=== PATIENT | male | born 1960 | race Caucasian/White ===

== ENCOUNTER 2018-08-13 14:27 | Inpatient (IN) | payer OTHER ==
[2018-08-13 14:54] VITALS: BMI 28.7
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
[2018-08-13] MEDS ORDERED: guaiFENesin/D-METHORPHAN HB 10 ML UNIT-DOSE CUPS PO PRN (15:18)
[2018-08-13] MEDS ORDERED: ACETAMINOPHEN 325 MG TABLET (FP) PO PRN (15:18)
[2018-08-13] MEDS ORDERED: hydrOXYzine PAMOATE 50 MG CAPSULE (FP) PO PRN (15:18)
[2018-08-13] MEDS ORDERED: P-EPHED 60MG/TRIPROLIDI 2.5MG TABLET PO PRN (15:18)
[2018-08-13] MEDS ORDERED: MAG HYDROX/AL HYDROX/SIMETH 30 ML UNIT-DOSE CUP PO PRN (15:18)
[2018-08-13] MEDS ORDERED: MAGNESIUM HYDROX 2400MG/30ML ORAL SUSPENSION 30 ML CUP PO PRN (15:18)
[2018-08-13] MEDS ORDERED: chlordiazePOXIDE HCL 25 MG CAPSULE PO ONE (15:18)
[2018-08-13] MEDS ORDERED: MENTHOL/PHENOL 1 EACH UD MM PRN (15:18)
[2018-08-13] MEDS ORDERED: LOPERAMIDE HCL 2 MG CAPSULE PO PRN (15:18)
[2018-08-13] MEDS ORDERED: MAGNESIUM CITRATE 300 ML BOTTLE PO PRN (15:18)
[2018-08-13] MEDS ORDERED: chlordiazePOXIDE HCL 25 MG CAPSULE PO PRN (15:18)
--- NOTE | 2018-08-13 18:30 | PN ---
[facility] Progress Note Note: EKG review- Patient has abnormal EKG showing left ventricular hypertrophy with QRS widening. Patient was admitted this afternoon with h/o chronic hypertension , on medication. On admission, he denied chest pain, palpitation, SOB or referred cardiac pain. Monitoring ongoing.
[2018-08-13] MEDS: chlordiazePOXIDE HCL 25 MG CAPSULE PO SCH ×2 (18:35→22:47)
[2018-08-13] MEDS: MELATONIN 5 MG TABLETS PO PRN (22:47)
[2018-08-13] MEDS: THIAMINE HCL 100 MG TABLET (FP) PO SCH (22:47)
[2018-08-14] MEDS: chlordiazePOXIDE HCL 25 MG CAPSULE PO SCH ×4 (04:00→22:11)
[2018-08-14] MEDS: IBUPROFEN 400 MG TABLET (FP) PO PRN ×2 (04:01→19:36)
[2018-08-14] MEDS: HYDROCHLOROTHIAZIDE 12.5 MG CAPSULE (FP) PO SCH (10:05)
[2018-08-14] MEDS: PRENATAL VITAMINS W/ FOLIC ACID TABLET (FP) PO SCH (10:05)
[2018-08-14] MEDS: ENALAPRIL MALEATE 10 MG TABLET (FP) PO SCH (10:06)
--- NOTE | 2018-08-14 10:46 | PN ---
S CIWA - CIWA Score Nausea/Vomitin-Mild Nausea/No Vomiting Muscle Tremors: 3 Anxiety: 1-Mildly Anxious Agitation: 2 Paroxysmal Sweats: 1-Minimal Palms Moist Orientation: 0-Oriented Tacttile Disturbances: 0-None Auditory Disturbances: 0-None Visual Disturbances: 0-None Headache: 2-Mild CIWA-Ar Total Score: 10 B[facility] Progress Note (SOAP) Subjective: tremor sweating patient reported that his primary care provider once told him that he has slight anemia denies bleeding episodes skin warm pink brisk capillary refilled encourage colonoscopy as per GI scheduled Objective: 08/14/18 10:45 Vital Signs Temperature 97 F L 08/14/18 09:15 Pulse Rate 87 08/14/18 09:15 Respiratory Rate 18 08/14/18 09:15 Blood Pressure 113/78 08/14/18 09:15 O2 Sat by Pulse Oximetry (%) lab pending Assessment: 08/14/18 10:45 alcohol withdrawal sx Plan: continue detox
[2018-08-14 10:49] LABS: ALK PHOS 86 U/L (45-117); ANION GAP 5 MMOL/L (8-16); BILIRUBIN,TOTAL 0.5 mg/dL (0.2-1); BLOOD UREA NITROGEN 18 mg/dL (7-18); CALCIUM 7.9 mg/dL (8.5-10.1); CHLORIDE 105 mmol/L (98-107); CO2 28 mmol/L (21-32); CREATININE 0.9 mg/dL (0.55-1.3); GLUCOSE,RANDOM 110 mg/dL (74-106); POTASSIUM 3.3 mmol/L (3.5-5.1); SGOT/AST 19 U/L (15-37); SGPT/ALT 22 U/L (13-61); SODIUM 138 mmol/L (136-145); TOT PROT 6.2 g/dl (6.4-8.2)
[2018-08-14 10:57] LABS: HEMATOCRIT 33.9 % (35.4-49); HEMOGLOBIN 11.7 GM/dL (11.7-16.9); MCH 33.8 pg (25.7-33.7); MCHC 34.5 g/dl (32.0-35.9); MEAN CELL VOLUME 97.9 fl (80-96); MEAN PLT VOLUME 8.5 fl (7.5-11.1); PLATELET COUNT 136 K/MM3 (134-434); RBC 3.47 M/mm3 (4.00-5.60); RDW 15.9 % (11.9-15.9); WHITE BLOOD COUNT 5.2 K/mm3 (4.0-10.0)
[2018-08-14] MEDS: POTASSIUM CHLORIDE ORAL LIQUID 20 MEQ/15 ML PO SCH ×2 (17:40→22:44)
[2018-08-14] MEDS: CALCIUM 250MG/VIT-D 125 UNITS 1 COMBO TABLET PO SCH ×2 (17:52→22:11)
[2018-08-14] MEDS: THIAMINE HCL 100 MG TABLET (FP) PO SCH (22:11)
[2018-08-14] MEDS: MELATONIN 5 MG TABLETS PO PRN (22:11)
--- NOTE | 2018-08-14 22:14 | EKG ---
Test Reason : Blood Pressure : / mmHG Vent. Rate : 089 BPM Atrial Rate : 089 BPM P-R Int : 208 ms QRS Dur : 116 ms QT Int : 374 ms P-R-T Axes : 055 -37 015 degrees QTc Int : 455 ms NORMAL SINUS RHYTHM LEFT AXIS DEVIATION LEFT VENTRICULAR HYPERTROPHY WITH QRS WIDENING ABNORMAL ECG NO PREVIOUS ECGS AVAILABLE Confirmed by MARY VILLANUEVA MD ([id number]) on 08/14/2018 10:14:23 PM Referred By: SAMPSON CHEEMA Confirmed By:MARY VILLANUEVA MD
[2018-08-15] MEDS: chlordiazePOXIDE HCL 25 MG CAPSULE PO SCH ×2 (05:07→10:10)
--- NOTE | 2018-08-15 10:06 | PN ---
[facility] CIWA - CIWA Score Nausea/Vomitin-No Nausea/No Vomiting Muscle Tremors: 2 Anxiety: 3 Agitation: 2 Paroxysmal Sweats: 1-Minimal Palms Moist Orientation: 0-Oriented Tacttile Disturbances: 0-None Auditory Disturbances: 0-None Visual Disturbances: 0-None Headache: 0-None Present CIWA-Ar Total Score: 8 S Progress Note (SOAP) Subjective: history of anemia anxious about low iron and needed to take iron supplement emotional assurance that mild below normal rbc within normal hgb anxiety restlessness overly worry Objective: 08/15/18 10:04 Vital Signs Temperature 96.5 F L 08/15/18 09:39 Pulse Rate 81 08/15/18 09:39 Respiratory Rate 18 08/15/18 09:39 Blood Pressure 152/90 08/15/18 09:39 O2 Sat by Pulse Oximetry (%) Laboratory Last Values WBC 5.2 K/mm3 (4.0-10.0) 08/14/18 07:50 RBC 3.47 M/mm3 (4.00-5.60) L 08/14/18 07:50 Hgb 11.7 GM/dL (11.7-16.9) 08/14/18 07:50 Hct 33.9 % (35.4-49) L 08/14/18 07:50 MCV 97.9 fl (80-96) H 08/14/18 07:50 MCH 33.8 pg (25.7-33.7) H 08/14/18 07:50 MCHC 34.5 g/dl (32.0-35.9) 08/14/18 07:50 RDW 15.9 % (11.9-15.9) 08/14/18 07:50 Plt Count 136 K/MM3 (134-434) 08/14/18 07:50 MPV 8.5 fl (7.5-11.1) 08/14/18 07:50 Sodium 138 mmol/L (136-145) 08/14/18 07:50 Potassium 3.8 mmol/L (3.5-5.1) 08/15/18 07:40 Chloride 105 mmol/L (98-107) 08/14/18 07:50 Carbon Dioxide 28 mmol/L (21-32) 08/14/18 07:50 Anion Gap 5 MMOL/L (8-16) L 08/14/18 07:50 BUN 18 mg/dL (7-18) 08/14/18 07:50 Creatinine 0.9 mg/dL (0.55-1.3) 08/14/18 07:50 Creat Clearance w eGFR > 60 (>60) 08/14/18 07:50 Random Glucose 110 mg/dL (74-106) H 08/14/18 07:50 Calcium 7.9 mg/dL (8.5-10.1) L 08/14/18 07:50 Total Bilirubin 0.5 mg/dL (0.2-1) 08/14/18 07:50 AST 19 U/L (15-37) 08/14/18 07:50 ALT 22 U/L (13-61) 08/14/18 07:50 Alkaline Phosphatase 86 U/L (45-117) 08/14/18 07:50 Total Protein 6.2 g/dl (6.4-8.2) L 08/14/18 07:50 Albumin 3.0 g/dl (3.4-5.0) L 08/14/18 07:50 RPR Titer Nonreactive (NONREACTIVE) 08/14/18 07:50 lab noted low ca++ continue calcium discontinue K+ 08/15/18 10:05 Assessment: 08/15/18 10:06 withdrawal sx low Ca++ Plan: continue detox continue Ca++
[2018-08-15] MEDS: CALCIUM 250MG/VIT-D 125 UNITS 1 COMBO TABLET PO SCH ×2 (10:08→22:08)
[2018-08-15] MEDS: HYDROCHLOROTHIAZIDE 12.5 MG CAPSULE (FP) PO SCH (10:09)
[2018-08-15] MEDS: ENALAPRIL MALEATE 10 MG TABLET (FP) PO SCH (10:09)
[2018-08-15] MEDS: PRENATAL VITAMINS W/ FOLIC ACID TABLET (FP) PO SCH (10:09)
[2018-08-15] MEDS: chlordiazePOXIDE 5 MG CAPSULE PO SCH ×2 (17:54→22:08)
[2018-08-15] MEDS: MELATONIN 5 MG TABLETS PO PRN (22:08)
[2018-08-15] MEDS: THIAMINE HCL 100 MG TABLET (FP) PO SCH (22:08)
[2018-08-16] MEDS: chlordiazePOXIDE 5 MG CAPSULE PO SCH ×2 (05:14→10:17)
[2018-08-16] MEDS: HYDROCHLOROTHIAZIDE 12.5 MG CAPSULE (FP) PO SCH (10:17)
[2018-08-16] MEDS: CALCIUM 250MG/VIT-D 125 UNITS 1 COMBO TABLET PO SCH ×2 (10:17→22:08)
[2018-08-16] MEDS: ENALAPRIL MALEATE 10 MG TABLET (FP) PO SCH (10:17)
[2018-08-16] MEDS: PRENATAL VITAMINS W/ FOLIC ACID TABLET (FP) PO SCH (10:17)
--- NOTE | 2018-08-16 10:40 | PN ---
S CIWA - CIWA Score Nausea/Vomitin-No Nausea/No Vomiting Muscle Tremors: 2 Anxiety: 2 Agitation: 1-Slight > Activity Paroxysmal Sweats: No Perspiration Orientation: 0-Oriented Tacttile Disturbances: 0-None Auditory Disturbances: 0-None Visual Disturbances: 0-None Headache: 0-None Present CIWA-Ar Total Score: 5 B[facility] Progress Note (SOAP) Subjective: feeling better less tremor requests lower the librium dosage that he is able to sleep through the night more energy and mild sweating Objective: 08/16/18 10:50 Vital Signs Temperature 96.4 F L 08/16/18 09:45 Pulse Rate 93 H 08/16/18 09:45 Respiratory Rate 16 08/16/18 09:45 Blood Pressure 147/90 08/16/18 09:45 O2 Sat by Pulse Oximetry (%) Laboratory Last Values WBC 5.2 K/mm3 (4.0-10.0) 08/14/18 07:50 RBC 3.47 M/mm3 (4.00-5.60) L 08/14/18 07:50 Hgb 11.7 GM/dL (11.7-16.9) 08/14/18 07:50 Hct 33.9 % (35.4-49) L 08/14/18 07:50 MCV 97.9 fl (80-96) H 08/14/18 07:50 MCH 33.8 pg (25.7-33.7) H 08/14/18 07:50 MCHC 34.5 g/dl (32.0-35.9) 08/14/18 07:50 RDW 15.9 % (11.9-15.9) 08/14/18 07:50 Plt Count 136 K/MM3 (134-434) 08/14/18 07:50 MPV 8.5 fl (7.5-11.1) 08/14/18 07:50 Sodium 138 mmol/L (136-145) 08/14/18 07:50 Potassium 3.8 mmol/L (3.5-5.1) 08/15/18 07:40 Chloride 105 mmol/L (98-107) 08/14/18 07:50 Carbon Dioxide 28 mmol/L (21-32) 08/14/18 07:50 Anion Gap 5 MMOL/L (8-16) L 08/14/18 07:50 BUN 18 mg/dL (7-18) 08/14/18 07:50 Creatinine 0.9 mg/dL (0.55-1.3) 08/14/18 07:50 Creat Clearance w eGFR > 60 (>60) 08/14/18 07:50 Random Glucose 110 mg/dL (74-106) H 08/14/18 07:50 Calcium 7.9 mg/dL (8.5-10.1) L 08/14/18 07:50 Total Bilirubin 0.5 mg/dL (0.2-1) 08/14/18 07:50 AST 19 U/L (15-37) 08/14/18 07:50 ALT 22 U/L (13-61) 08/14/18 07:50 Alkaline Phosphatase 86 U/L (45-117) 08/14/18 07:50 Total Protein 6.2 g/dl (6.4-8.2) L 08/14/18 07:50 Albumin 3.0 g/dl (3.4-5.0) L 08/14/18 07:50 RPR Titer Nonreactive (NONREACTIVE) 08/14/18 07:50 lab noted Assessment: 08/16/18 10:50 mild withdrawal sx Plan: continue detox
[2018-08-16] MEDS ORDERED: chlordiazePOXIDE HCL 10 MG CAPSULE PO SCH (17:00)
[2018-08-16] MEDS: chlordiazePOXIDE HCL 10 MG CAPSULE PO SCH ×2 (17:31→22:08)
[2018-08-16] MEDS: THIAMINE HCL 100 MG TABLET (FP) PO SCH (22:08)
[2018-08-16] MEDS: MELATONIN 5 MG TABLETS PO PRN (22:08)
[2018-08-17 06:46] VITALS: BP 126/70; PULSE 54; TEMP 96.3
--- NOTE | 2018-08-17 09:42 | DS ---
[facility] Detox Discharge Summary Admission Date: 08/13/18 Discharge Date: 08/17/18 - History Present History: Alcohol Dependence Additional Comments: 58 years old male admitted on 08/13/18 for alcohol withdrawal stabilization completed alcohol detox regimen aftercare [facility] rehab facility Pertinent Past History: keep medication list in wallet bring-in bottles of medication and medication list to aftercare appointment important of medication adherence update medication list when changes of medication - Physical Exam Results Vital Signs: Vital Signs Temperature 96.3 F L 08/17/18 06:45 Pulse Rate 54 L 08/17/18 06:45 Respiratory Rate 16 08/17/18 06:45 Blood Pressure 126/70 08/17/18 06:45 O2 Sat by Pulse Oximetry (%) Pertinent Admission Physical Exam Findings: alcohol withdrawal sx Laboratory Last Values WBC 5.2 K/mm3 (4.0-10.0) 08/14/18 07:50 RBC 3.47 M/mm3 (4.00-5.60) L 08/14/18 07:50 Hgb 11.7 GM/dL (11.7-16.9) 08/14/18 07:50 Hct 33.9 % (35.4-49) L 08/14/18 07:50 MCV 97.9 fl (80-96) H 08/14/18 07:50 MCH 33.8 pg (25.7-33.7) H 08/14/18 07:50 MCHC 34.5 g/dl (32.0-35.9) 08/14/18 07:50 RDW 15.9 % (11.9-15.9) 08/14/18 07:50 Plt Count 136 K/MM3 (134-434) 08/14/18 07:50 MPV 8.5 fl (7.5-11.1) 08/14/18 07:50 Sodium 138 mmol/L (136-145) 08/14/18 07:50 Potassium 3.8 mmol/L (3.5-5.1) 08/15/18 07:40 Chloride 105 mmol/L (98-107) 08/14/18 07:50 Carbon Dioxide 28 mmol/L (21-32) 08/14/18 07:50 Anion Gap 5 MMOL/L (8-16) L 08/14/18 07:50 BUN 18 mg/dL (7-18) 08/14/18 07:50 Creatinine 0.9 mg/dL (0.55-1.3) 08/14/18 07:50 Creat Clearance w eGFR > 60 (>60) 08/14/18 07:50 Random Glucose 110 mg/dL (74-106) H 08/14/18 07:50 Calcium 7.9 mg/dL (8.5-10.1) L 08/14/18 07:50 Total Bilirubin 0.5 mg/dL (0.2-1) 08/14/18 07:50 AST 19 U/L (15-37) 08/14/18 07:50 ALT 22 U/L (13-61) 08/14/18 07:50 Alkaline Phosphatase 86 U/L (45-117) 08/14/18 07:50 Total Protein 6.2 g/dl (6.4-8.2) L 08/14/18 07:50 Albumin 3.0 g/dl (3.4-5.0) L 08/14/18 07:50 RPR Titer Nonreactive (NONREACTIVE) 08/14/18 07:50 lab noted - Treatment Hospital Course: Detox Protocol Followed, Detoxed Safely, Responded well, Discharged Condition Good, Rehab Referral Accepted Patient has Accepted a Rehab Referral to: [facility] able - Medication Discharge Medications: Ambulatory Orders Hydrochlorothiazide 12.5 mg PO DAILY 08/13/18 Amlodipine Besylate [Norvasc -] 10 mg PO DAILY #14 tablet 08/16/18 Enalapril Maleate [Vasotec -] 10 mg PO DAILY #14 tablet 08/16/18 Hydrochlorothiazide [Hctz -] 12.5 mg PO DAILY #14 cap 08/16/18 - Diagnosis (1) HTN (hypertension) Status: Chronic Qualifiers: Hypertension type: essential hypertension Qualified Code(s): I10 - Essential (primary) hypertension (2) Uncomplicated alcohol withdrawal Status: Acute (3) Asthma Status: Chronic Qualifiers: Asthma severity: mild Asthma persistence: intermittent Asthma complication type: unspecified Qualified Code(s): J45.20 - Mild intermittent asthma, uncomplicated - AMA Did Patient Leave Against Medical Advice: No
== END 2018-08-17 08:56 | disposition home or self-care (01) | DRG 775 ==
LOC: YASAS 14:27 → Y3N 17:02
PROVIDERS: ADMIT Surgery; ATTEND Surgery
PROC: HZ2ZZZZ Detoxification Services for Substance Abuse Treatment (ICD-10-PCS; principal; 2018-08-13)
DX: F10.230 Alcohol dependence with withdrawal, uncomplicated (principal); I10 Essential (primary) hypertension; J45.20 Mild intermittent asthma, uncomplicated; E78.00 Pure hypercholesterolemia, unspecified; E83.51 Hypocalcemia; E87.6 Hypokalemia; R94.31 Abnormal electrocardiogram [ECG] [EKG]; Z86.2 Personal history of diseases of the blood and blood-forming organs and certain disorders involving the immune mechanism; Z86.73 Personal history of transient ischemic attack (TIA), and cerebral infarction without residual deficits; Z86.74 Personal history of sudden cardiac arrest
CPT/HCPCS: 36415; 80053; 84132; 85027; 86593; 93005; 93010

== ENCOUNTER 2021-12-01 23:11 | Inpatient (IN) | payer OTHER ==
[2021-12-01 23:57] VITALS: BMI 24.3
[2021-12-02] MEDS ORDERED: BENZOCAINE/MENTHOL (CHLORASEPTIC ) LOZENGE MM PRN (00:36)
[2021-12-02] MEDS ORDERED: IBUPROFEN 400 MG TABLET (FP) PO PRN (00:36)
[2021-12-02] MEDS ORDERED: MAG HYDROX/AL HYDROX/SIMETH 30 ML UNIT-DOSE CUP PO PRN (00:36)
[2021-12-02] MEDS ORDERED: MAGNESIUM HYDROX 2400MG/30ML ORAL SUSPENSION 30 ML CUP PO PRN (00:36)
[2021-12-02] MEDS ORDERED: DICYCLOMINE HCL 10 MG CAPSULE PO PRN (00:36)
[2021-12-02] MEDS ORDERED: MAGNESIUM CITRATE 300 ML BOTTLE PO PRN (00:36)
[2021-12-02] MEDS ORDERED: IBUPROFEN 600 MG TABLET (FP) PO PRN (00:36)
[2021-12-02] MEDS ORDERED: BISMUTH SUBSALICYLATE 524 MG/30 ML PO PRN (00:36)
[2021-12-02] MEDS ORDERED: ACETAMINOPHEN 325 MG TABLET (FP) PO PRN ×2 (00:36)
[2021-12-02] MEDS ORDERED: LOPERAMIDE HCL 2 MG CAPSULE PO PRN (00:36)
[2021-12-02] MEDS ORDERED: ONDANSETRON *ODT* 4 MG TABLET SL PRN (00:36)
[2021-12-02] MEDS ORDERED: chlordiazePOXIDE HCL 25 MG CAPSULE PO PRN (00:38)
[2021-12-02] MEDS ORDERED: cloNIDine HCL 0.1 MG TABLET PO ONE ×2 (01:48→06:48)
[2021-12-02] MEDS: METHOCARBAMOL 500 MG TABLET PO PRN ×2 (01:48→10:26)
[2021-12-02] MEDS: chlordiazePOXIDE HCL 25 MG CAPSULE PO SCH ×4 (05:53→22:15)
[2021-12-02] MEDS: PRENATAL VITAMINS W/ FOLIC ACID TABLET (FP) PO SCH (10:26)
[2021-12-02] MEDS: ENALAPRIL MALEATE 10 MG TABLET PO SCH (10:26)
[2021-12-02] MEDS: HYDROCHLOROTHIAZIDE 12.5 MG CAPSULE (FP) PO SCH (10:26)
[2021-12-02] MEDS: amLODIPine BESYLATE 10 MG TABLET (FP) PO SCH (10:26)
[2021-12-02 15:26] LABS: HEMATOCRIT 40.6 % (35.4-49); HEMOGLOBIN 13.4 GM/dL (11.7-16.9); MCH 32.3 pg (25.7-33.7); MCHC 33.1 g/dl (32.0-35.9); MEAN CELL VOLUME 97.6 fl (80-96); MEAN PLT VOLUME 8.7 fl (7.5-11.1); RBC 4.16 M/mm3 (4.00-5.60); RDW 19.7 % (11.9-15.9); WHITE BLOOD COUNT 3.9 K/mm3 (4.0-10.0)
[2021-12-02 15:29] LABS: CALCIUM 8.5 mg/dL (8.5-10.1)
[2021-12-02 15:30] LABS: ALBUMIN 3.3 g/dl (3.4-5.0); BLOOD UREA NITROGEN 8.8 mg/dL (7-18)
[2021-12-02 15:34] LABS: TOT PROT 7.2 g/dl (6.4-8.2)
[2021-12-02 16:23] LABS: PLATELET COUNT 61 10^3/uL (134-434)
[2021-12-02] MEDS: MELATONIN 5 MG TABLETS PO SCH (22:12)
[2021-12-02] MEDS: THIAMINE HCL 100 MG TABLET (FP) PO SCH (22:12)
[2021-12-03] MEDS: chlordiazePOXIDE HCL 25 MG CAPSULE PO SCH ×4 (05:39→22:17)
[2021-12-03] MEDS: amLODIPine BESYLATE 10 MG TABLET (FP) PO SCH (10:27)
[2021-12-03] MEDS: PRENATAL VITAMINS W/ FOLIC ACID TABLET (FP) PO SCH (10:27)
[2021-12-03] MEDS: HYDROCHLOROTHIAZIDE 12.5 MG CAPSULE (FP) PO SCH (10:27)
[2021-12-03] MEDS: ENALAPRIL MALEATE 10 MG TABLET PO SCH (10:27)
[2021-12-03] MEDS ORDERED: cloNIDine HCL 0.1 MG TABLET PO ONE (13:15)
[2021-12-03] MEDS: THIAMINE HCL 100 MG TABLET (FP) PO SCH (22:16)
[2021-12-03] MEDS: MELATONIN 5 MG TABLETS PO SCH (22:16)
[2021-12-04] MEDS ORDERED: chlordiazePOXIDE HCL 10 MG CAPSULE PO PRN
[2021-12-04] MEDS: chlordiazePOXIDE HCL 10 MG CAPSULE PO SCH ×4 (06:40→22:17)
[2021-12-04] MEDS: ENALAPRIL MALEATE 10 MG TABLET PO SCH (10:12)
[2021-12-04] MEDS: PRENATAL VITAMINS W/ FOLIC ACID TABLET (FP) PO SCH (10:12)
[2021-12-04] MEDS: HYDROCHLOROTHIAZIDE 12.5 MG CAPSULE (FP) PO SCH (10:12)
[2021-12-04] MEDS: amLODIPine BESYLATE 10 MG TABLET (FP) PO SCH (10:12)
[2021-12-04] MEDS: MELATONIN 5 MG TABLETS PO SCH (22:16)
[2021-12-04] MEDS: THIAMINE HCL 100 MG TABLET (FP) PO SCH (22:17)
[2021-12-05] MEDS: chlordiazePOXIDE HCL 10 MG CAPSULE PO SCH ×2 (05:51→17:53)
[2021-12-05] MEDS: amLODIPine BESYLATE 10 MG TABLET (FP) PO SCH (10:18)
[2021-12-05] MEDS: PRENATAL VITAMINS W/ FOLIC ACID TABLET (FP) PO SCH (10:18)
[2021-12-05] MEDS: ENALAPRIL MALEATE 10 MG TABLET PO SCH (10:18)
[2021-12-05] MEDS: HYDROCHLOROTHIAZIDE 12.5 MG CAPSULE (FP) PO SCH (10:18)
[2021-12-05] MEDS: METHOCARBAMOL 500 MG TABLET PO PRN (17:55)
[2021-12-05] MEDS: MELATONIN 5 MG TABLETS PO SCH (22:14)
[2021-12-05] MEDS: THIAMINE HCL 100 MG TABLET (FP) PO SCH (22:14)
[2021-12-06] MEDS ORDERED: chlordiazePOXIDE HCL 10 MG CAPSULE PO ONE (05:00)
[2021-12-06] MEDS: ENALAPRIL MALEATE 10 MG TABLET PO SCH (09:38)
[2021-12-06] MEDS: amLODIPine BESYLATE 10 MG TABLET (FP) PO SCH (09:38)
[2021-12-06] MEDS: HYDROCHLOROTHIAZIDE 12.5 MG CAPSULE (FP) PO SCH (09:38)
[2021-12-06] MEDS: PRENATAL VITAMINS W/ FOLIC ACID TABLET (FP) PO SCH (09:38)
[2021-12-06 17:25] VITALS: BP 119/81; PULSE 86; TEMP 98.2
== END 2021-12-06 18:10 | disposition other institution (70) | DRG 775 ==
LOC: YASAS 23:11 → Y3N 12-02 00:44
PROVIDERS: ADMIT Allergy & Immunology; ATTEND Surgery
PROC: HZ2ZZZZ Detoxification Services for Substance Abuse Treatment (ICD-10-PCS; principal; 2021-12-02)
DX: F10.230 Alcohol dependence with withdrawal, uncomplicated (principal); F10.24 Alcohol dependence with alcohol-induced mood disorder; D50.9 Iron deficiency anemia, unspecified; E78.5 Hyperlipidemia, unspecified; G47.00 Insomnia, unspecified; I10 Essential (primary) hypertension; J45.20 Mild intermittent asthma, uncomplicated; Z86.79 Personal history of other diseases of the circulatory system; Z56.0 Unemployment, unspecified
CPT/HCPCS: 36415; 80053; 85027; 86780; 93005; 93010; C9803-CS; J0735; U0003; U0005

== ENCOUNTER 2021-12-06 21:26 | Inpatient (IN) | payer OTHER ==
[2021-12-06] MEDS ORDERED: MAG HYDROX/AL HYDROX/SIMETH 30 ML UNIT-DOSE CUP PO PRN (22:12)
[2021-12-06] MEDS ORDERED: MAGNESIUM CITRATE 300 ML BOTTLE PO PRN (22:12)
[2021-12-06] MEDS ORDERED: MAGNESIUM HYDROX 2400MG/30ML ORAL SUSPENSION 30 ML CUP PO PRN (22:12)
[2021-12-06] MEDS ORDERED: P-EPHED 60MG/TRIPROLIDI 2.5MG TABLET PO PRN (22:12)
[2021-12-06] MEDS ORDERED: BENZOCAINE/MENTHOL (CHLORASEPTIC ) LOZENGE MM PRN (22:12)
[2021-12-06] MEDS ORDERED: LOPERAMIDE HCL 2 MG CAPSULE PO PRN (22:12)
[2021-12-06] MEDS ORDERED: guaiFENesin 200 MG/10 ML 10 ML UNIT-DOSE CUPS PO PRN (22:12)
[2021-12-06] MEDS: MELATONIN 5 MG TABLETS PO SCH (22:52)
[2021-12-07] MEDS: hydrOXYzine PAMOATE 25 MG CAPSULE (FP) PO SCH ×5 (06:47→21:07)
[2021-12-07] MEDS: amLODIPine BESYLATE 10 MG TABLET (FP) PO SCH (07:32)
[2021-12-07] MEDS: ENALAPRIL MALEATE 10 MG TABLET PO SCH (07:32)
[2021-12-07] MEDS: HYDROCHLOROTHIAZIDE 25 MG TABLET (FP) PO SCH (07:32)
[2021-12-07] MEDS ORDERED: cloNIDine HCL 0.1 MG TABLET PO ONE (09:20)
[2021-12-07] MEDS: PRENATAL VITAMINS W/ FOLIC ACID TABLET (FP) PO SCH (09:39)
[2021-12-07] MEDS: MELATONIN 5 MG TABLETS PO SCH (21:06)
[2021-12-07] MEDS: THIAMINE HCL 100 MG TABLET (FP) PO SCH (21:07)
[2021-12-08] MEDS: hydrOXYzine PAMOATE 25 MG CAPSULE (FP) PO SCH ×5 (06:33→21:10)
[2021-12-08] MEDS: HYDROCHLOROTHIAZIDE 25 MG TABLET (FP) PO SCH (06:33)
[2021-12-08] MEDS: amLODIPine BESYLATE 10 MG TABLET (FP) PO SCH (06:33)
[2021-12-08] MEDS: ENALAPRIL MALEATE 10 MG TABLET PO SCH (06:33)
[2021-12-08] MEDS: PRENATAL VITAMINS W/ FOLIC ACID TABLET (FP) PO SCH (10:39)
[2021-12-08] MEDS: THIAMINE HCL 100 MG TABLET (FP) PO SCH (21:09)
[2021-12-08] MEDS: MELATONIN 5 MG TABLETS PO SCH (21:09)
[2021-12-09] MEDS: HYDROCHLOROTHIAZIDE 25 MG TABLET (FP) PO SCH (05:43)
[2021-12-09] MEDS: amLODIPine BESYLATE 10 MG TABLET (FP) PO SCH (05:43)
[2021-12-09] MEDS: ENALAPRIL MALEATE 10 MG TABLET PO SCH (05:43)
[2021-12-09] MEDS: hydrOXYzine PAMOATE 25 MG CAPSULE (FP) PO SCH ×5 (05:43→21:17)
[2021-12-09] MEDS: PRENATAL VITAMINS W/ FOLIC ACID TABLET (FP) PO SCH (10:23)
[2021-12-09] MEDS: THIAMINE HCL 100 MG TABLET (FP) PO SCH (21:17)
[2021-12-09] MEDS: MELATONIN 5 MG TABLETS PO SCH (21:17)
[2021-12-10] MEDS: hydrOXYzine PAMOATE 25 MG CAPSULE (FP) PO SCH ×5 (05:55→21:18)
[2021-12-10] MEDS: HYDROCHLOROTHIAZIDE 25 MG TABLET (FP) PO SCH (05:55)
[2021-12-10] MEDS: ENALAPRIL MALEATE 10 MG TABLET PO SCH (05:55)
[2021-12-10] MEDS: amLODIPine BESYLATE 10 MG TABLET (FP) PO SCH (05:55)
[2021-12-10] MEDS: PRENATAL VITAMINS W/ FOLIC ACID TABLET (FP) PO SCH (10:14)
[2021-12-10] MEDS: MELATONIN 5 MG TABLETS PO SCH (21:17)
[2021-12-10] MEDS: THIAMINE HCL 100 MG TABLET (FP) PO SCH (21:17)
[2021-12-11] MEDS: amLODIPine BESYLATE 10 MG TABLET (FP) PO SCH (05:42)
[2021-12-11] MEDS: HYDROCHLOROTHIAZIDE 25 MG TABLET (FP) PO SCH (05:43)
[2021-12-11] MEDS: ENALAPRIL MALEATE 10 MG TABLET PO SCH (05:43)
[2021-12-11] MEDS: hydrOXYzine PAMOATE 25 MG CAPSULE (FP) PO SCH ×5 (05:43→21:15)
[2021-12-11] MEDS: PRENATAL VITAMINS W/ FOLIC ACID TABLET (FP) PO SCH (10:09)
[2021-12-11] MEDS: MELATONIN 5 MG TABLETS PO SCH (21:15)
[2021-12-11] MEDS: THIAMINE HCL 100 MG TABLET (FP) PO SCH (21:15)
[2021-12-12] MEDS: HYDROCHLOROTHIAZIDE 25 MG TABLET (FP) PO SCH (06:01)
[2021-12-12] MEDS: hydrOXYzine PAMOATE 25 MG CAPSULE (FP) PO SCH ×5 (06:01→21:08)
[2021-12-12] MEDS: ENALAPRIL MALEATE 10 MG TABLET PO SCH (06:01)
[2021-12-12] MEDS: amLODIPine BESYLATE 10 MG TABLET (FP) PO SCH (06:02)
[2021-12-12] MEDS: PRENATAL VITAMINS W/ FOLIC ACID TABLET (FP) PO SCH (09:26)
[2021-12-12] MEDS: MELATONIN 5 MG TABLETS PO SCH (21:08)
[2021-12-12] MEDS: THIAMINE HCL 100 MG TABLET (FP) PO SCH (21:08)
[2021-12-13] MEDS: hydrOXYzine PAMOATE 25 MG CAPSULE (FP) PO SCH ×5 (05:45→21:13)
[2021-12-13] MEDS: amLODIPine BESYLATE 10 MG TABLET (FP) PO SCH (05:45)
[2021-12-13] MEDS: ENALAPRIL MALEATE 10 MG TABLET PO SCH (05:45)
[2021-12-13] MEDS: HYDROCHLOROTHIAZIDE 25 MG TABLET (FP) PO SCH (05:45)
[2021-12-13] MEDS: PRENATAL VITAMINS W/ FOLIC ACID TABLET (FP) PO SCH (10:02)
[2021-12-13] MEDS: MELATONIN 5 MG TABLETS PO SCH (21:13)
[2021-12-13] MEDS: THIAMINE HCL 100 MG TABLET (FP) PO SCH (21:13)
[2021-12-14] MEDS: IBUPROFEN 400 MG TABLET (FP) PO PRN (06:27)
[2021-12-14] MEDS: amLODIPine BESYLATE 10 MG TABLET (FP) PO SCH (06:27)
[2021-12-14] MEDS: hydrOXYzine PAMOATE 25 MG CAPSULE (FP) PO SCH ×5 (06:27→21:17)
[2021-12-14] MEDS: HYDROCHLOROTHIAZIDE 25 MG TABLET (FP) PO SCH (06:27)
[2021-12-14] MEDS: ENALAPRIL MALEATE 10 MG TABLET PO SCH (06:27)
[2021-12-14] MEDS: PRENATAL VITAMINS W/ FOLIC ACID TABLET (FP) PO SCH (10:28)
[2021-12-14] MEDS: MELATONIN 5 MG TABLETS PO SCH (21:17)
[2021-12-14] MEDS: THIAMINE HCL 100 MG TABLET (FP) PO SCH (21:17)
[2021-12-15] MEDS: hydrOXYzine PAMOATE 25 MG CAPSULE (FP) PO SCH ×5 (05:33→21:12)
[2021-12-15] MEDS: ENALAPRIL MALEATE 10 MG TABLET PO SCH (05:33)
[2021-12-15] MEDS: amLODIPine BESYLATE 10 MG TABLET (FP) PO SCH (05:33)
[2021-12-15] MEDS: HYDROCHLOROTHIAZIDE 25 MG TABLET (FP) PO SCH (05:33)
[2021-12-15] MEDS: PRENATAL VITAMINS W/ FOLIC ACID TABLET (FP) PO SCH (10:03)
[2021-12-15] MEDS: THIAMINE HCL 100 MG TABLET (FP) PO SCH (21:12)
[2021-12-15] MEDS: MELATONIN 5 MG TABLETS PO SCH (21:12)
[2021-12-16] MEDS: hydrOXYzine PAMOATE 25 MG CAPSULE (FP) PO SCH ×5 (05:41→21:03)
[2021-12-16] MEDS: ENALAPRIL MALEATE 10 MG TABLET PO SCH (05:41)
[2021-12-16] MEDS: amLODIPine BESYLATE 10 MG TABLET (FP) PO SCH (05:41)
[2021-12-16] MEDS: HYDROCHLOROTHIAZIDE 25 MG TABLET (FP) PO SCH (05:42)
[2021-12-16] MEDS: PRENATAL VITAMINS W/ FOLIC ACID TABLET (FP) PO SCH (10:43)
[2021-12-16] MEDS: MELATONIN 5 MG TABLETS PO SCH (21:03)
[2021-12-16] MEDS: THIAMINE HCL 100 MG TABLET (FP) PO SCH (21:03)
[2021-12-17] MEDS: HYDROCHLOROTHIAZIDE 25 MG TABLET (FP) PO SCH (05:35)
[2021-12-17] MEDS: ENALAPRIL MALEATE 10 MG TABLET PO SCH (05:35)
[2021-12-17] MEDS: amLODIPine BESYLATE 10 MG TABLET (FP) PO SCH (05:35)
[2021-12-17] MEDS: hydrOXYzine PAMOATE 25 MG CAPSULE (FP) PO SCH ×5 (05:36→21:04)
[2021-12-17] MEDS: PRENATAL VITAMINS W/ FOLIC ACID TABLET (FP) PO SCH (10:12)
[2021-12-17] MEDS: THIAMINE HCL 100 MG TABLET (FP) PO SCH (21:04)
[2021-12-17] MEDS: MELATONIN 5 MG TABLETS PO SCH (21:04)
[2021-12-18] MEDS: HYDROCHLOROTHIAZIDE 25 MG TABLET (FP) PO SCH (05:33)
[2021-12-18] MEDS: amLODIPine BESYLATE 10 MG TABLET (FP) PO SCH (05:33)
[2021-12-18] MEDS: hydrOXYzine PAMOATE 25 MG CAPSULE (FP) PO SCH ×5 (05:34→21:37)
[2021-12-18] MEDS: ENALAPRIL MALEATE 10 MG TABLET PO SCH (05:34)
[2021-12-18] MEDS: PRENATAL VITAMINS W/ FOLIC ACID TABLET (FP) PO SCH (11:05)
[2021-12-18] MEDS: THIAMINE HCL 100 MG TABLET (FP) PO SCH (21:37)
[2021-12-18] MEDS: MELATONIN 5 MG TABLETS PO SCH (21:37)
[2021-12-19] MEDS: hydrOXYzine PAMOATE 25 MG CAPSULE (FP) PO SCH ×5 (05:49→21:26)
[2021-12-19] MEDS: ENALAPRIL MALEATE 10 MG TABLET PO SCH (05:49)
[2021-12-19] MEDS: amLODIPine BESYLATE 10 MG TABLET (FP) PO SCH (05:49)
[2021-12-19] MEDS: HYDROCHLOROTHIAZIDE 25 MG TABLET (FP) PO SCH (05:49)
[2021-12-19] MEDS: PRENATAL VITAMINS W/ FOLIC ACID TABLET (FP) PO SCH (10:27)
[2021-12-19] MEDS: NALTREXONE HCL 50 MG TABLET PO SCH (15:34)
[2021-12-19] MEDS: MELATONIN 5 MG TABLETS PO SCH (21:26)
[2021-12-19] MEDS: THIAMINE HCL 100 MG TABLET (FP) PO SCH (21:26)
[2021-12-20] MEDS: hydrOXYzine PAMOATE 25 MG CAPSULE (FP) PO SCH ×5 (05:34→21:24)
[2021-12-20] MEDS: HYDROCHLOROTHIAZIDE 25 MG TABLET (FP) PO SCH (05:34)
[2021-12-20] MEDS: ENALAPRIL MALEATE 10 MG TABLET PO SCH (05:34)
[2021-12-20] MEDS: amLODIPine BESYLATE 10 MG TABLET (FP) PO SCH (05:34)
[2021-12-20] MEDS: PRENATAL VITAMINS W/ FOLIC ACID TABLET (FP) PO SCH (09:23)
[2021-12-20] MEDS: NALTREXONE HCL 50 MG TABLET PO SCH (09:23)
[2021-12-20 10:01] LABS: ALBUMIN 3.9 g/dl (3.4-5.0)
[2021-12-20 10:04] LABS: BILIRUBIN,TOTAL 0.5 mg/dL (0.2-1); TOT PROT 7.9 g/dl (6.4-8.2)
[2021-12-20 10:05] LABS: BILIRUBIN,DIRECT 0.2 mg/dL (0.0-0.2)
[2021-12-20] MEDS: THIAMINE HCL 100 MG TABLET (FP) PO SCH (21:23)
[2021-12-20] MEDS: MELATONIN 5 MG TABLETS PO SCH (21:24)
[2021-12-21] MEDS: ENALAPRIL MALEATE 10 MG TABLET PO SCH (06:21)
[2021-12-21] MEDS: amLODIPine BESYLATE 10 MG TABLET (FP) PO SCH (06:23)
[2021-12-21] MEDS: hydrOXYzine PAMOATE 25 MG CAPSULE (FP) PO SCH ×5 (06:23→21:23)
[2021-12-21] MEDS: HYDROCHLOROTHIAZIDE 25 MG TABLET (FP) PO SCH (06:23)
[2021-12-21] MEDS: NALTREXONE HCL 50 MG TABLET PO SCH (10:12)
[2021-12-21] MEDS: PRENATAL VITAMINS W/ FOLIC ACID TABLET (FP) PO SCH (10:12)
[2021-12-21] MEDS: THIAMINE HCL 100 MG TABLET (FP) PO SCH (21:23)
[2021-12-21] MEDS: MELATONIN 5 MG TABLETS PO SCH (21:23)
[2021-12-22] MEDS: HYDROCHLOROTHIAZIDE 25 MG TABLET (FP) PO SCH (06:59)
[2021-12-22] MEDS: amLODIPine BESYLATE 10 MG TABLET (FP) PO SCH (06:59)
[2021-12-22] MEDS: ENALAPRIL MALEATE 10 MG TABLET PO SCH (06:59)
[2021-12-22] MEDS: hydrOXYzine PAMOATE 25 MG CAPSULE (FP) PO SCH ×5 (06:59→21:47)
[2021-12-22] MEDS: NALTREXONE HCL 50 MG TABLET PO SCH (10:06)
[2021-12-22] MEDS: PRENATAL VITAMINS W/ FOLIC ACID TABLET (FP) PO SCH (10:06)
[2021-12-22] MEDS: THIAMINE HCL 100 MG TABLET (FP) PO SCH (21:47)
[2021-12-22] MEDS: MELATONIN 5 MG TABLETS PO SCH (21:47)
[2021-12-23] MEDS: amLODIPine BESYLATE 10 MG TABLET (FP) PO SCH (06:21)
[2021-12-23] MEDS: HYDROCHLOROTHIAZIDE 25 MG TABLET (FP) PO SCH (06:21)
[2021-12-23] MEDS: ENALAPRIL MALEATE 10 MG TABLET PO SCH (06:21)
[2021-12-23] MEDS: hydrOXYzine PAMOATE 25 MG CAPSULE (FP) PO SCH ×5 (06:21→21:20)
[2021-12-23] MEDS: PRENATAL VITAMINS W/ FOLIC ACID TABLET (FP) PO SCH (10:24)
[2021-12-23] MEDS: NALTREXONE HCL 50 MG TABLET PO SCH (10:24)
[2021-12-23] MEDS: MELATONIN 5 MG TABLETS PO SCH (21:03)
[2021-12-23] MEDS: THIAMINE HCL 100 MG TABLET (FP) PO SCH (21:03)
[2021-12-24] MEDS: hydrOXYzine PAMOATE 25 MG CAPSULE (FP) PO SCH ×5 (06:02→21:13)
[2021-12-24] MEDS: IBUPROFEN 400 MG TABLET (FP) PO PRN (06:02)
[2021-12-24] MEDS: amLODIPine BESYLATE 10 MG TABLET (FP) PO SCH (06:03)
[2021-12-24] MEDS: HYDROCHLOROTHIAZIDE 25 MG TABLET (FP) PO SCH (06:03)
[2021-12-24] MEDS: ENALAPRIL MALEATE 10 MG TABLET PO SCH (07:28)
[2021-12-24] MEDS: PRENATAL VITAMINS W/ FOLIC ACID TABLET (FP) PO SCH (10:18)
[2021-12-24] MEDS: NALTREXONE HCL 50 MG TABLET PO SCH (10:18)
[2021-12-24 12:52] LABS: ALBUMIN 3.7 g/dl (3.4-5.0)
[2021-12-24 12:57] LABS: BILIRUBIN,DIRECT 0.2 mg/dL (0.0-0.2); BILIRUBIN,TOTAL 0.6 mg/dL (0.2-1); TOT PROT 7.2 g/dl (6.4-8.2)
[2021-12-24] MEDS: MELATONIN 5 MG TABLETS PO SCH (21:13)
[2021-12-24] MEDS: THIAMINE HCL 100 MG TABLET (FP) PO SCH (21:13)
[2021-12-25] MEDS: amLODIPine BESYLATE 10 MG TABLET (FP) PO SCH (05:37)
[2021-12-25] MEDS: ENALAPRIL MALEATE 10 MG TABLET PO SCH (05:37)
[2021-12-25] MEDS: HYDROCHLOROTHIAZIDE 25 MG TABLET (FP) PO SCH (05:37)
[2021-12-25] MEDS: hydrOXYzine PAMOATE 25 MG CAPSULE (FP) PO SCH ×5 (05:37→21:22)
[2021-12-25] MEDS: NALTREXONE HCL 50 MG TABLET PO SCH (10:23)
[2021-12-25] MEDS: PRENATAL VITAMINS W/ FOLIC ACID TABLET (FP) PO SCH (10:23)
[2021-12-25] MEDS: THIAMINE HCL 100 MG TABLET (FP) PO SCH (21:22)
[2021-12-25] MEDS: MELATONIN 5 MG TABLETS PO SCH (21:23)
[2021-12-26] MEDS: HYDROCHLOROTHIAZIDE 25 MG TABLET (FP) PO SCH (06:54)
[2021-12-26] MEDS: amLODIPine BESYLATE 10 MG TABLET (FP) PO SCH (06:54)
[2021-12-26] MEDS: ENALAPRIL MALEATE 10 MG TABLET PO SCH (06:54)
[2021-12-26] MEDS: hydrOXYzine PAMOATE 25 MG CAPSULE (FP) PO SCH ×5 (06:54→21:05)
[2021-12-26] MEDS: PRENATAL VITAMINS W/ FOLIC ACID TABLET (FP) PO SCH (09:54)
[2021-12-26] MEDS ORDERED: NALTREXONE MICROSPHERES (VIVITROL) 380 MG DISP.SYRIN IM ONE (10:30)
[2021-12-26] MEDS: THIAMINE HCL 100 MG TABLET (FP) PO SCH (21:05)
[2021-12-26] MEDS: MELATONIN 5 MG TABLETS PO SCH (21:05)
[2021-12-27] MEDS: amLODIPine BESYLATE 10 MG TABLET (FP) PO SCH (06:29)
[2021-12-27] MEDS: ENALAPRIL MALEATE 10 MG TABLET PO SCH (06:29)
[2021-12-27] MEDS: HYDROCHLOROTHIAZIDE 25 MG TABLET (FP) PO SCH (06:29)
[2021-12-27] MEDS: hydrOXYzine PAMOATE 25 MG CAPSULE (FP) PO SCH ×5 (06:30→22:00)
[2021-12-27] MEDS: ACETAMINOPHEN 325 MG TABLET (FP) PO PRN (06:30)
[2021-12-27] MEDS: PRENATAL VITAMINS W/ FOLIC ACID TABLET (FP) PO SCH (10:30)
[2021-12-27] MEDS: THIAMINE HCL 100 MG TABLET (FP) PO SCH (22:00)
[2021-12-27] MEDS: MELATONIN 5 MG TABLETS PO SCH (22:00)
[2021-12-28] MEDS: ACETAMINOPHEN 325 MG TABLET (FP) PO PRN ×3 (06:15→21:05)
[2021-12-28] MEDS: amLODIPine BESYLATE 10 MG TABLET (FP) PO SCH (06:16)
[2021-12-28] MEDS: ENALAPRIL MALEATE 10 MG TABLET PO SCH (06:16)
[2021-12-28] MEDS: HYDROCHLOROTHIAZIDE 25 MG TABLET (FP) PO SCH (06:16)
[2021-12-28] MEDS: hydrOXYzine PAMOATE 25 MG CAPSULE (FP) PO SCH ×5 (06:16→21:04)
[2021-12-28] MEDS: PRENATAL VITAMINS W/ FOLIC ACID TABLET (FP) PO SCH (10:29)
[2021-12-28] MEDS: MELATONIN 5 MG TABLETS PO SCH (21:04)
[2021-12-28] MEDS: THIAMINE HCL 100 MG TABLET (FP) PO SCH (21:05)
[2021-12-29] MEDS: ACETAMINOPHEN 325 MG TABLET (FP) PO PRN (01:08)
[2021-12-29] MEDS: hydrOXYzine PAMOATE 25 MG CAPSULE (FP) PO SCH ×5 (06:07→21:35)
[2021-12-29] MEDS: HYDROCHLOROTHIAZIDE 25 MG TABLET (FP) PO SCH (06:07)
[2021-12-29] MEDS: ENALAPRIL MALEATE 10 MG TABLET PO SCH (06:07)
[2021-12-29] MEDS: amLODIPine BESYLATE 10 MG TABLET (FP) PO SCH (06:07)
[2021-12-29] MEDS: PRENATAL VITAMINS W/ FOLIC ACID TABLET (FP) PO SCH (10:23)
[2021-12-29] MEDS: THIAMINE HCL 100 MG TABLET (FP) PO SCH (21:35)
[2021-12-29] MEDS: MELATONIN 5 MG TABLETS PO SCH (21:35)
[2021-12-30 06:10] VITALS: BP 144/91; PULSE 82; TEMP 98
[2021-12-30] MEDS: amLODIPine BESYLATE 10 MG TABLET (FP) PO SCH (06:30)
[2021-12-30] MEDS: ENALAPRIL MALEATE 10 MG TABLET PO SCH (06:30)
[2021-12-30] MEDS: HYDROCHLOROTHIAZIDE 25 MG TABLET (FP) PO SCH (06:30)
[2021-12-30] MEDS: hydrOXYzine PAMOATE 25 MG CAPSULE (FP) PO SCH (06:30)
== END 2021-12-30 09:23 | disposition home or self-care (01) | DRG 772 ==
LOC: YASAS 21:26 → Y3W 21:27
PROVIDERS: ADMIT Allergy & Immunology; ATTEND Psychiatry & Neurology Pain Medicine
PROC: HZ42ZZZ Group Counseling for Substance Abuse Treatment, Cognitive-Behavioral (ICD-10-PCS; principal; 2021-12-06)
DX: F10.20 Alcohol dependence, uncomplicated (principal); E78.5 Hyperlipidemia, unspecified; I10 Essential (primary) hypertension; J45.20 Mild intermittent asthma, uncomplicated; R56.9 Unspecified convulsions; R94.5 Abnormal results of liver function studies; Z86.73 Personal history of transient ischemic attack (TIA), and cerebral infarction without residual deficits; Z86.79 Personal history of other diseases of the circulatory system
CPT/HCPCS: 36415; 80076; 82962; J0735; J2315

== ENCOUNTER 2022-06-10 17:40 | Inpatient (IN) | payer OTHER ==
[2022-06-10 19:38] VITALS: BMI 25.8
[2022-06-10] MEDS ORDERED: guaiFENesin 200 MG/10 ML 10 ML UNIT-DOSE CUPS PO PRN (20:13)
[2022-06-10] MEDS ORDERED: MAG HYDROX/AL HYDROX/SIMETH 30 ML UNIT-DOSE CUP PO PRN (20:13)
[2022-06-10] MEDS ORDERED: MAGNESIUM HYDROX 2400MG/30ML ORAL SUSPENSION 30 ML CUP PO PRN (20:13)
[2022-06-10] MEDS ORDERED: P-EPHED 60MG/TRIPROLIDI 2.5MG TABLET PO PRN (20:13)
[2022-06-10] MEDS ORDERED: NICOTINE POLACRILEX 2 MG GUM BC PRN (20:13)
[2022-06-10] MEDS ORDERED: LOPERAMIDE HCL 2 MG CAPSULE PO PRN (20:13)
[2022-06-10] MEDS ORDERED: BENZOCAINE/MENTHOL (CHLORASEPTIC ) LOZENGE MM PRN (20:13)
[2022-06-10] MEDS ORDERED: POLYETHYLENE GLYCOL (HEALTHYLAX) 3350 17 GM PACKET PO PRN (20:13)
[2022-06-10] MEDS ORDERED: levETIRAcetam 250 MG TABLET PO SCH (22:00)
[2022-06-11] MEDS ORDERED: levETIRAcetam 500 MG TABLET (FP) PO ONE ×2 (01:42→10:42)
[2022-06-11] MEDS: levETIRAcetam 250 MG TABLET PO SCH ×3 (01:46→21:44)
[2022-06-11] MEDS: THIAMINE HCL 100 MG TABLET (FP) PO SCH ×2 (01:46→21:05)
[2022-06-11] MEDS: MELATONIN 5 MG TABLETS PO SCH ×2 (01:46→21:05)
[2022-06-11] MEDS: PRENATAL VITAMINS W/ FOLIC ACID TABLET (FP) PO SCH (10:44)
[2022-06-11 11:37] LABS: HEMATOCRIT 38.8 % (35.4-49); HEMOGLOBIN 12.8 GM/dL (11.7-16.9); MCH 32.6 pg (25.7-33.7); MCHC 33.1 g/dl (32.0-35.9); MEAN CELL VOLUME 98.3 fl (80-96); MEAN PLT VOLUME 9.3 fl (7.5-11.1); PLATELET COUNT 242 10^3/uL (134-434); RBC 3.94 M/mm3 (4.00-5.60); RDW 15.5 % (11.9-15.9); WHITE BLOOD COUNT 6.8 K/mm3 (4.0-10.0)
[2022-06-11 12:02] LABS: CALCIUM 9.3 mg/dL (8.5-10.1)
[2022-06-11 12:04] LABS: ALBUMIN 3.7 g/dl (3.4-5.0); BLOOD UREA NITROGEN 33.6 mg/dL (7-18)
[2022-06-11 12:05] LABS: CREATININE 1.3 mg/dL (0.55-1.3)
[2022-06-11 12:07] LABS: BILIRUBIN,TOTAL 0.8 mg/dL (0.2-1)
[2022-06-11] MEDS: IBUPROFEN 400 MG TABLET (FP) PO PRN (15:04)
[2022-06-11] MEDS: hydrOXYzine PAMOATE 25 MG CAPSULE (FP) PO PRN (21:06)
[2022-06-12] MEDS: IBUPROFEN 400 MG TABLET (FP) PO PRN (04:01)
[2022-06-12] MEDS: HYDROCHLOROTHIAZIDE 12.5 MG CAPSULE (FP) PO SCH (09:51)
[2022-06-12] MEDS: amLODIPine BESYLATE 10 MG TABLET (FP) PO SCH (09:51)
[2022-06-12] MEDS: PRENATAL VITAMINS W/ FOLIC ACID TABLET (FP) PO SCH (09:51)
[2022-06-12] MEDS: levETIRAcetam 250 MG TABLET PO SCH ×2 (10:07→21:12)
[2022-06-12] MEDS: MELATONIN 5 MG TABLETS PO SCH (21:12)
[2022-06-12] MEDS: THIAMINE HCL 100 MG TABLET (FP) PO SCH (21:12)
[2022-06-12] MEDS: hydrOXYzine PAMOATE 25 MG CAPSULE (FP) PO PRN (21:12)
[2022-06-13] MEDS: ACETAMINOPHEN 325 MG TABLET (FP) PO PRN (03:56)
[2022-06-13] MEDS: amLODIPine BESYLATE 10 MG TABLET (FP) PO SCH (09:39)
[2022-06-13] MEDS: PRENATAL VITAMINS W/ FOLIC ACID TABLET (FP) PO SCH (09:39)
[2022-06-13] MEDS: levETIRAcetam 250 MG TABLET PO SCH ×2 (09:39→21:20)
[2022-06-13] MEDS: HYDROCHLOROTHIAZIDE 12.5 MG CAPSULE (FP) PO SCH (09:40)
[2022-06-13] MEDS: THIAMINE HCL 100 MG TABLET (FP) PO SCH (21:19)
[2022-06-13] MEDS: MELATONIN 5 MG TABLETS PO SCH (21:19)
[2022-06-13] MEDS: hydrOXYzine PAMOATE 25 MG CAPSULE (FP) PO PRN (21:20)
[2022-06-14] MEDS: ACETAMINOPHEN 325 MG TABLET (FP) PO PRN (06:32)
[2022-06-14] MEDS: HYDROCHLOROTHIAZIDE 12.5 MG CAPSULE (FP) PO SCH (09:55)
[2022-06-14] MEDS: levETIRAcetam 250 MG TABLET PO SCH ×2 (09:55→21:03)
[2022-06-14] MEDS: amLODIPine BESYLATE 10 MG TABLET (FP) PO SCH (09:55)
[2022-06-14] MEDS: PRENATAL VITAMINS W/ FOLIC ACID TABLET (FP) PO SCH (09:55)
[2022-06-14] MEDS: hydrOXYzine PAMOATE 25 MG CAPSULE (FP) PO PRN (21:03)
[2022-06-14] MEDS: MELATONIN 5 MG TABLETS PO SCH (21:03)
[2022-06-14] MEDS: THIAMINE HCL 100 MG TABLET (FP) PO SCH (21:03)
[2022-06-15] MEDS: ACETAMINOPHEN 325 MG TABLET (FP) PO PRN (02:51)
[2022-06-15 06:11] VITALS: TEMP 97.1
[2022-06-15] MEDS: HYDROCHLOROTHIAZIDE 12.5 MG CAPSULE (FP) PO SCH (09:38)
[2022-06-15] MEDS: PRENATAL VITAMINS W/ FOLIC ACID TABLET (FP) PO SCH (09:39)
[2022-06-15] MEDS: levETIRAcetam 250 MG TABLET PO SCH ×2 (09:39→21:04)
[2022-06-15] MEDS: amLODIPine BESYLATE 10 MG TABLET (FP) PO SCH (09:39)
[2022-06-15] MEDS: MELATONIN 5 MG TABLETS PO SCH (21:03)
[2022-06-15] MEDS: THIAMINE HCL 100 MG TABLET (FP) PO SCH (21:03)
[2022-06-15] MEDS: hydrOXYzine PAMOATE 25 MG CAPSULE (FP) PO PRN (21:04)
[2022-06-16] MEDS: ACETAMINOPHEN 325 MG TABLET (FP) PO PRN (02:52)
[2022-06-16 06:30] VITALS: RESP 16
[2022-06-16] MEDS: levETIRAcetam 250 MG TABLET PO SCH (09:34)
[2022-06-16] MEDS: HYDROCHLOROTHIAZIDE 12.5 MG CAPSULE (FP) PO SCH (09:34)
[2022-06-16] MEDS: amLODIPine BESYLATE 10 MG TABLET (FP) PO SCH (09:34)
[2022-06-16] MEDS: PRENATAL VITAMINS W/ FOLIC ACID TABLET (FP) PO SCH (09:35)
[2022-06-16 11:14] VITALS: BP 138/74; PULSE 79
[2022-06-16] MEDS ORDERED: LACTULOSE 20 GM/30 ML UDC (FOR ORAL USE ONLY) PO ONE (12:17)
[2022-06-16] MEDS ORDERED: LACTULOSE 20 GM/30 ML UDC (FOR ORAL USE ONLY) PO SCH (22:00)
== END 2022-06-16 13:18 | disposition left against medical advice (07) | DRG 770 ==
LOC: YASAS 17:40 → Y3E 06-11 11:19
PROVIDERS: ADMIT Allergy & Immunology; ATTEND Psychiatry & Neurology Pain Medicine
PROC: HZ42ZZZ Group Counseling for Substance Abuse Treatment, Cognitive-Behavioral (ICD-10-PCS; principal; 2022-06-11)
DX: F10.20 Alcohol dependence, uncomplicated (principal); F10.24 Alcohol dependence with alcohol-induced mood disorder; E72.20 Disorder of urea cycle metabolism, unspecified; D53.1 Other megaloblastic anemias, not elsewhere classified; E78.5 Hyperlipidemia, unspecified; I10 Essential (primary) hypertension; J45.909 Unspecified asthma, uncomplicated; Z86.73 Personal history of transient ischemic attack (TIA), and cerebral infarction without residual deficits; Z86.69 Personal history of other diseases of the nervous system and sense organs; Z86.79 Personal history of other diseases of the circulatory system
CPT/HCPCS: 36415; 80053; 80177; 81003; 82140; 82607; 82728; 82747; 84466; 85014; 85027; 86780; C9803-CS; U0003; U0005